=== PATIENT | female | born 1955 | race Caucasian/White ===

== ENCOUNTER → 2016-11-21 | Outpatient (CLI) | payer BC ==
--- NOTE | 2016-11-22 14:48 | MY ---
EXAMINATION: Bilateral digital mammography utilizing CAD. HISTORY: Screening exam. Comparison is made to previous studies dated 11/13/2015, 09/06/2014, 014. FINDINGS: Bilateral heterogeneously dense breast tissue. No suspicious calcifications, masses or architectural distortions. No pathologic appearing lymph nodes, no abnormal skin thickening or nip ple inversion. CAD highlighted regions appear normal at this time. IMPRESSION: BI-RADS category I - negative mammogram. Continued screening according to ACR-ACS gu idelines suggested. THE FALSE-NEGATIVE RATE OF MAMMOGRAM IS APPROXIMATELY 10%. MANAGEMENT OF A PALPABLE ABNORMALITY MUST BE BASED UPON CLINICAL GROUNDS. SENSITIVITY FOR DETECTION OF ABNORMALITIES IN DENSE BREASTS IS LOW. NOTE: A letter will be sent to the patient regarding findings. [facility] -- DENNIS Reyes [phone] - FAX [phone]
--- NOTE | 2016-11-22 19:39 | XA ---
Exam Date: 11/21/16 Patient's Age: 61 HEIGHT: 71.0 in. WEIGHT: 177.0 lbs. INDICATIONS: Back pain, hysterectomy FRACTURES: Adult fractures only TREATMENTS: Vitamin D, Welchol ASSESSMENT: The BMD measured at AP Spine L1-L4 is 0.903 g/cm2 with a T-score of -2.4. This patient is considered osteopenic according to World Health Organization (WHO) criteria. Bone density is between 10% and 25% below young normal. Fracture risk is moderate. Treatment is advised. The BMD measured at Femur Troch Mean is 0.749 g/cm2 with a T-score of -0.9 is normal. Fracture risk is low. RESULTS: Site Region Age Classification T-Score BMD AP Spine L1-L4 61.3 Osteopenia -2.4 0.903 g/cm2 Dual Femur Neck Mean 61.3 Osteopenia -1.8 0.785 g/cm2 Dual Femur Neck Mean 49.2 Osteopenia -1.6 0.790 g/cm2 Dual Femur Troch Mean 61.3 N/A -0.9 0.749 g/cm2 Dual Femur Troch Mean 49.2 N/A -1.4 0.636 g/cm2 Dual Femur Total Mean 61.3 Osteopenia -1.4 0.827 g/cm2 Dual Femur Total Mean 49.2 Osteopenia -2.0 0.760 g/cm2 World Health Organization - Criteria for post-menopausal, women: Normal: T-Score at or above -1 SD Osteopenia: T-Score between -1 and -2.5 SD Osteoporosis: T-Score at or below -2.5 SD RECOMMENDATION: Pharmacologic treatment recommendations & Initiate pharmacologic treatment: - In those with hip or vertebral (clinical or asymptomatic) fractures - In those with T -scores <-2.5 at the femoral neck, total hip, or lumbar spine by DXA - In postmenopausal women and men age 50 and older with low bone mass (T-score between -1.0 and -2.5, osteopenia) at the femoral neck, total hip, or lumbar spine by DXA and a 10-year hip fracture probability >3 % or a 10-year major osteoporosis-related fracture probability >20% based on the [place]-adapted WHO absolute fracture risk model (Fracture Risk Algorithm (FRAX); www. NOF.org and www.shef.ac.uk/FRAX) FOLLOW UP: People with diagnosed cases of osteoporosis or at high risk for fracture should have regular bone mineral density tests. For patients eligible for Medicare, routine testing is allowed once every 2 years. The testing frequency can be increased to 1 year for patients who have rapidly progressing disease, those who are reviewing or discontinuing medial therapy to restore bone mass, or have additional risk factors. People with diagnosed cases of osteoporosis or osteopenia should be regularly tested for bone mineral density. For patient eligible for Medicare, routine testing is allowed once every 2 years. The testing frequency can be increased to 1 year for patients who have rapidly progressing disease, or for those who are receiving medial therapy to restore bone mass. [facility] -- DENNIS Reyes [phone] - FAX: [phone] MIQUEL
== END | disposition home or self-care (01) ==
LOC: MW.MAM 14:31
PROVIDERS: ATTEND Obstetrics & Gynecology
DX: Z13.820 Encounter for screening for osteoporosis (principal); M85.88 Other specified disorders of bone density and structure, other site; M89.9 Disorder of bone, unspecified; Z12.31 Encounter for screening mammogram for malignant neoplasm of breast
CPT/HCPCS: 77080; G0202